=== PATIENT | female | born 1970 | race Caucasian/White ===

== ENCOUNTER 2017-12-19 06:08 | Inpatient (IN) | payer SELFPAY ==
[~2017-12-19] VITALS: Ht 157.5 cm; Wt 59.4 kg
[2017-12-19] VITALS (37 sets, daily range): BP systolic 47–169; BP diastolic 19–110
[2017-12-19] MEDS ORDERED: FAMOTIDINE 20MG/2ML VIAL IV STA (06:27)
[2017-12-19] MEDS ORDERED: SODIUM CHLORIDE 0.9% 1,000 ML IV ONE ×2 (06:27→13:23)
[2017-12-19] MEDS ORDERED: ONDANSETRON HCL 4MG/2ML INJ IV STA (06:27)
[2017-12-19] MEDS ORDERED: MORPHINE SULFATE 4 MG/ML CPJ (NOT FOR IM USE) IV STA (06:27)
[2017-12-19] MEDS ORDERED: MORPHINE SULFATE 4 MG/ML CPJ (NOT FOR IM USE) IV ONE ×3 (07:15→12:45)
[2017-12-19 07:47] LABS: HEMATOCRIT. 44.4 % (36.0-48.0); HEMOGLOBIN. 15.2 g/dL (12.0-16.0); MEAN CORPUSCULAR HEMOGLOBIN 29.3 pg (28.0-32.0); MEAN CORPUSCULAR VOLUME 85.6 fL (81.0-99.0); MEAN PLATELET VOLUME 9.1 fl (7.4-10.4); PLATELET 245 x1000/uL (130-400); RED BLOOD CELL COUNT 5.19 mill/uL (4.2-5.4); RED CELL DISTRIBUTION WIDTH 13.3 % (11.6-14.6)
[2017-12-19 07:53] LABS: CHLORIDE 98 mEq/L (98-107)
[2017-12-19 07:55] LABS: PROTHROMBIN TIME 10.5 sec (9.1-11.1)
[2017-12-19 08:27] LABS: HCG SCREEN NEGATIVE
[2017-12-19 08:32] LABS: PLATELET ESTIMATE NORMAL
[2017-12-19 09:03] LABS: CLARITY URINE CLOUDY (CLEAR); COLOR URINE YELLOW (YELLOW); KETONES URINE 2+ (NEGATIVE); OCCULT BLOOD URINE TRACE (NEGATIVE); PH URINE 8.5 (4.5-8.0); PROTEIN URINE 1+ (NEGATIVE); SPECIFIC GRAVITY URINE 1.014 (1.005-1.030)
[2017-12-19 09:04] LABS: LEUKOCYTE ESTERASE URINE 1+ (NEGATIVE); NITRITE URINE NEGATIVE (NEGATIVE); UROBILINOGEN URINE 0.2 E.U./dL (0.2-1.0)
[2017-12-19] MEDS ORDERED: HYDRALAZINE HCL 50MG TABLET PO ONE (10:15)
[2017-12-19] MEDS ORDERED: HYDRALAZINE 20MG/ML VIAL IV ONE (11:15)
[2017-12-19] MEDS ORDERED: DEXT 5%/0.45% NACL 1000ML 1,000 ML IV SCH (12:48)
[2017-12-19] MEDS ORDERED: ONDANSETRON HCL 4MG/2ML INJ IV PRN (13:00)
[2017-12-19] MEDS ORDERED: ACETAMINOPHEN 650MG SUPP PR PRN (13:00)
[2017-12-19] MEDS ORDERED: HYDROMORPHONE HCL/PF 2MG/ML CPJ IV PRN (13:00)
[2017-12-19] MEDS ORDERED: DIATR MEGLU/DIATRIZOATE SOLN 120ML ONE (13:41)
[2017-12-19] MEDS ORDERED: IPRATROPIUM/ALBUTEROL 0.5-3(2.5)MG/3ML NEB HHN PRN (15:30)
[2017-12-19] MEDS ORDERED: ATROPINE SULFATE 1MG/10ML SYR ONE (16:00)
[2017-12-19] MEDS ORDERED: NORMAL SALINE 0.9% 10 ML SYR ONE (16:00)
[2017-12-19] MEDS ORDERED: ETOMIDATE 2MG/ML 10ML VIAL IV ONE (16:00)
[2017-12-19] MEDS ORDERED: VECURONIUM BROMIDE 10 MG/VIAL IV ONE (16:00)
[2017-12-19] MEDS ORDERED: PHENYLEPHRINE 20 MG in DEXT 5% WATER 248 ML IV PRN (16:30)
[2017-12-19] MEDS ORDERED: DOPAMINE 400MG PREMIX 250 ML IV PRN (17:00)
[2017-12-19] MEDS ORDERED: MORPHINE SULFATE 4 MG/ML CPJ (NOT FOR IM USE) IV PRN (17:00)
[2017-12-19] MEDS ORDERED: SODIUM CHLORIDE 0.9% 1,000 ML IV NR (17:00)
[2017-12-19] MEDS ORDERED: PROPOFOL 10MG/ML 100ML 100 ML IV PRN (17:00)
[2017-12-19] MEDS: PANTOPRAZOLE SODIUM 40 MG/VIAL IV SCH ×2 (17:42→17:57)
[2017-12-19 17:44] LABS: BG BASE EXCESS -25.3 mmol/L (-2.0-2.0); BG CARBOXYHEMOGLOBIN 0.3 % (0.5-1.5); BG DEOXYHEMOGLOBIN 0.5 % (0.0-5.0); BG FRACTION INSPIRED OXYGEN 100; BG HCO3 ACT 9.7 mmol/L (22.0-26.0); BG METHEMOGLOBIN 0.6 % (0.0-1.5); BG OXYGEN SATURATION 99.5 % (92.0-98.5); BG OXYHEMOGLOBIN 98.6 % (94.0-97.0); BG PCO2 59.3 mmHg (35.0-45.0); BG PH 6.831 (7.350-7.450); BG PO2 563.5 mmHg (75.0-100.0); BG SAMPLE SITE LEFT RADIAL; BG TIDAL VOLUME(mL) 500 mL; BG TOTAL HEMOGLOBIN 16.2 g/dL (12.0-18.0); BG VENT MODE VENT - A/C; BG VENT RATE 14 set
[2017-12-19] MEDS: SODIUM BICARBONATE 8.4% 1 MEQ/ML 50ML SYR IV NR ×2 (17:55→17:57)
[2017-12-19] MEDS: CEFEPIME 2,000 MG in DEXT 5% WATER 100 ML IV SCH (17:58)
[2017-12-19] MEDS: NOREPINEPHRINE 16 MG in DEXT 5% WATER 234 ML IV PRN ×2 (18:00→21:12)
[2017-12-19] MEDS: SODIUM BICARBONATE 150 MEQ in DEXTROSE 5% WATER 1,000 ML IV SCH ×3 (19:04)
[2017-12-19] MEDS: PHENYLEPHRINE 40 MG in DEXT 5% WATER 246 ML IV PRN ×2 (19:05→21:59)
[2017-12-19 19:55] LABS: BASOPHILS % 0.4 % (0.0-2.0); EOSINOPHILS % 0.3 % (0.0-5.0); HEMOGLOBIN. 16.5 g/dL (12.0-16.0); LYMPHOCYTES % 12.4 % (20.0-50.0); MEAN CORPUSCULAR HEMOGLOBIN 29.2 pg (28.0-32.0); MEAN CORPUSCULAR VOLUME 86.6 fL (81.0-99.0); MEAN PLATELET VOLUME 8.9 fl (7.4-10.4); MONOCYTES % 2.7 % (2.0-8.0); NEUTROPHILS % 84.2 % (40.0-76.0); PLATELET 315 x1000/uL (130-400); RED BLOOD CELL COUNT 5.66 mill/uL (4.2-5.4); RED CELL DISTRIBUTION WIDTH 13.3 % (11.6-14.6)
[2017-12-19 20:06] LABS: CREATINE KINASE MB FRACTION 36.4 ng/mL (0.5-3.6)
[2017-12-19 20:27] LABS: BG BASE EXCESS -15.5 mmol/L (-2.0-2.0); BG CARBOXYHEMOGLOBIN 0.3 % (0.5-1.5); BG DEOXYHEMOGLOBIN 0.4 % (0.0-5.0); BG FRACTION INSPIRED OXYGEN 100; BG HCO3 ACT 9.2 mmol/L (22.0-26.0); BG METHEMOGLOBIN 0.3 % (0.0-1.5); BG OXYGEN SATURATION 99.6 % (92.0-98.5); BG PCO2 21.4 mmHg (35.0-45.0); BG PH 7.251 (7.350-7.450); BG PO2 446.4 mmHg (75.0-100.0); BG SAMPLE SITE LEFT FEMORAL; BG TIDAL VOLUME(mL) 500 mL; BG VENT MODE VENT - A/C; BG VENT RATE 26 set
[2017-12-19] MEDS: IPRATROPIUM/ALBUTEROL 0.5-3(2.5)MG/3ML NEB HHN SCH (21:00)
[2017-12-19] MEDS ORDERED: SODIUM BICARBONATE 8.4% 1 MEQ/ML 50ML SYR IV ONE (21:01)
[2017-12-19] MEDS ORDERED: VASOPRESSIN 10 UNIT in SODIUM CHLORIDE 0.9% 99.5 ML IV PRN (22:30)
[2017-12-19] MEDS: DEXTROSE 50% WATER 50ML SYRINGE IV PRN (22:35)
[2017-12-19] MEDS: METRONIDAZOLE 500 MG PREMIX 100 ML IV SCH (22:36)
[2017-12-19] MEDS: KCL 20MEQ/100ML PREMIX 100 ML IV SCH (23:11)
[2017-12-20] VITALS (84 sets, daily range): BP systolic 40–222; BP diastolic 19–135
[2017-12-20] MEDS: PHENYLEPHRINE 40 MG in DEXT 5% WATER 246 ML IV PRN ×2 (01:46→06:28)
[2017-12-20] MEDS: DEXTROSE 50% WATER 50ML SYRINGE IV PRN ×2 (01:46→02:53)
[2017-12-20] MEDS: NOREPINEPHRINE 16 MG in DEXT 5% WATER 234 ML IV PRN (01:47)
[2017-12-20] MEDS ORDERED: DEXT 10% WATER 1,000 ML IV SCH (02:00)
[2017-12-20] MEDS: IPRATROPIUM/ALBUTEROL 0.5-3(2.5)MG/3ML NEB HHN SCH ×5 (03:59→15:15)
[2017-12-20] MEDS: METRONIDAZOLE 500 MG PREMIX 100 ML IV SCH ×2 (04:51→12:00)
[2017-12-20] MEDS: CEFEPIME 2,000 MG in DEXT 5% WATER 100 ML IV SCH ×2 (04:51→17:48)
[2017-12-20 06:13] LABS: HEMATOCRIT. 46.7 % (36.0-48.0); HEMOGLOBIN. 14.9 g/dL (12.0-16.0); MEAN CORPUSCULAR HEMOGLOBIN 28.9 pg (28.0-32.0); MEAN CORPUSCULAR VOLUME 90.9 fL (81.0-99.0); MEAN PLATELET VOLUME 9.2 fl (7.4-10.4); PLATELET 243 x1000/uL (130-400); RED BLOOD CELL COUNT 5.14 mill/uL (4.2-5.4); RED CELL DISTRIBUTION WIDTH 13.8 % (11.6-14.6)
[2017-12-20 07:12] LABS: *BARBITURATES SCREEN URINE NEGATIVE (NEGATIVE); *BENZODIAZEPINES SCREEN URINE NEGATIVE (NEGATIVE); *COCAINE SCREEN URINE NEGATIVE (NEGATIVE); METHADONE URINE SCREEN NEGATIVE (NEGATIVE)
[2017-12-20 07:13] LABS: CANNABINOID URINE SCREEN NEGATIVE (NEGATIVE); PHENCYCLIDINE URINE SCREEN NEGATIVE (NEGATIVE)
[2017-12-20 07:15] LABS: *AMPHETAMINES SCREEN URINE PRESUMTIVE POSITIVE (NEGATIVE); OPIATES URINE SCREEN PRESUMTIVE POSITIVE (NEGATIVE)
[2017-12-20 07:25] LABS: BG BASE EXCESS -17.4 mmol/L (-2.0-2.0); BG CARBOXYHEMOGLOBIN 0.2 % (0.5-1.5); BG DEOXYHEMOGLOBIN 0.5 % (0.0-5.0); BG FRACTION INSPIRED OXYGEN 100; BG METHEMOGLOBIN 0.3 % (0.0-1.5); BG OXYGEN SATURATION 99.5 % (92.0-98.5); BG PCO2 24.5 mmHg (35.0-45.0); BG PH 7.185 (7.350-7.450); BG PO2 442.3 mmHg (75.0-100.0); BG SAMPLE SITE LEFT BRACHIAL; BG TIDAL VOLUME(mL) 500 mL; BG VENT MODE VENT - A/C; BG VENT RATE 26 set
[2017-12-20] MEDS ORDERED: CALCIUM CHLORIDE 1GM/10ML SYR IV ONE ×2 (08:45→10:46)
[2017-12-20] MEDS ORDERED: DEXTROSE 50% WATER 50ML SYRINGE IV ONE ×2 (08:45→10:46)
[2017-12-20] MEDS ORDERED: SODIUM BICARBONATE 7.5% 0.9 MEQ/ML 50ML SYR IV ONE ×2 (08:45→10:46)
[2017-12-20] MEDS ORDERED: NALOXONE HCL 0.4 MG/ML 1ML VIAL ONE (08:45)
[2017-12-20] MEDS ORDERED: EPINEPHRINE 0.1MG/ML (1:10,000) 10ML SYR ONE ×2 (08:45→10:46)
[2017-12-20] MEDS: SODIUM BICARBONATE 150 MEQ in DEXTROSE 5% WATER 1,000 ML IV SCH ×3 (09:43)
[2017-12-20 12:58] LABS: BASOPHILS % 0.1 % (0.0-2.0); EOSINOPHILS % 1.4 % (0.0-5.0); HEMATOCRIT. 38.8 % (36.0-48.0); HEMOGLOBIN. 12.6 g/dL (12.0-16.0); LYMPHOCYTES % 21.3 % (20.0-50.0); MEAN CORPUSCULAR HEMOGLOBIN 29.5 pg (28.0-32.0); MEAN CORPUSCULAR VOLUME 90.5 fL (81.0-99.0); MEAN PLATELET VOLUME 8.9 fl (7.4-10.4); NEUTROPHILS % 72.2 % (40.0-76.0); PLATELET 173 x1000/uL (130-400); RED BLOOD CELL COUNT 4.29 mill/uL (4.2-5.4)
[2017-12-20 13:05] LABS: CHLORIDE 92 mEq/L (98-107)
[2017-12-20 13:11] LABS: LDL CHOLESTEROL 30 mg/dL (5-100)
[2017-12-20 13:13] LABS: HDL CHOLESTEROL 34 mg/dL (40-59)
[2017-12-20 13:43] LABS: PARTIAL THROMBOPLASTIN TIME 61.2 sec (23.4-31.0); PROTHROMBIN TIME 39.5 sec (9.1-11.1)
[2017-12-20 14:32] LABS: ATYPICAL LYMPHOCYTES 3; NUCLEATED RED BLOOD CELLS 1 /100 WBC; PLATELET ESTIMATE NORMAL
[2017-12-20] MEDS: PANTOPRAZOLE SODIUM 40 MG/VIAL IV SCH (17:50)
[2017-12-20 19:35] LABS: HEMOGLOBIN 12.2 g/dL (12.0-16.0)
[2017-12-21] MEDS ORDERED: SODIUM BICARBONATE 7.5% 0.9 MEQ/ML 50ML SYR IV ONE (14:53)
[2017-12-21] MEDS ORDERED: ATROPINE SULFATE 1MG/10ML SYR ONE (14:53)
[2017-12-21] MEDS ORDERED: DEXTROSE 50% WATER 50ML SYRINGE IV ONE (14:53)
[2017-12-21] MEDS ORDERED: EPINEPHRINE 0.1MG/ML (1:10,000) 10ML SYR ONE (14:53)
== END 2017-12-20 21:06 | disposition expired | DRG 720 ==
LOC: ER 06:08 → ENRESERV 11:24 → SUPCPDRO 12:47 → 6EST 14:57 → MICUSO 16:16
PROVIDERS: ADMIT Hospitalist; ATTEND Hospitalist
PROC: 5A1945Z Respiratory Ventilation, 24-96 Consecutive Hours (ICD-10-PCS; principal; 2017-12-19)
PROC: 5A12012 Performance of Cardiac Output, Single, Manual (ICD-10-PCS; 2017-12-19)
PROC: 0BH17EZ Insertion of Endotracheal Airway into Trachea, Via Natural or Artificial Opening (ICD-10-PCS; 2017-12-19)
PROC: 02HV33Z Insertion of Infusion Device into Superior Vena Cava, Percutaneous Approach (ICD-10-PCS; 2017-12-19)
PROC: 5A12012 Performance of Cardiac Output, Single, Manual (ICD-10-PCS; 2017-12-20)
DX: A41.9 Sepsis, unspecified organism (principal); I46.9 Cardiac arrest, cause unspecified; J69.0 Pneumonitis due to inhalation of food and vomit; J96.00 Acute respiratory failure, unspecified whether with hypoxia or hypercapnia; R65.21 Severe sepsis with septic shock; K85.90 Acute pancreatitis without necrosis or infection, unspecified; E16.2 Hypoglycemia, unspecified; F17.200 Nicotine dependence, unspecified, uncomplicated; K31.89 Other diseases of stomach and duodenum; K92.2 Gastrointestinal hemorrhage, unspecified; F15.10 Other stimulant abuse, uncomplicated; F11.10 Opioid abuse, uncomplicated; N17.9 Acute kidney failure, unspecified; N32.89 Other specified disorders of bladder; Z66 Do not resuscitate; R74.0 Nonspecific elevation of levels of transaminase and lactic acid dehydrogenase [LDH]; E80.6 Other disorders of bilirubin metabolism
CPT/HCPCS: 31500; 36415; 36600; 71045; 74176; 74246; 80048; 80053; 80061; 80305; 81003; 82375; 82550; 82553; 82805; 82962; 83605; 83690; 83735; 84484; 84703; 85014; 85018; 85025; 85610; 85730; 87040; 92950; 96374; 96375; 96376; 99291; A4216; C9113; J0360; J0461; J0692; J1265; J2270; J2310; J2370; J2405; J2704; J3480; J3490; J7030; J7060; J7070; J7120; J7620; Q9963